=== PATIENT | female | born 1965 | race Caucasian/White ===

== ENCOUNTER 2017-08-03 00:36 | Emergency (ER) | payer OTHER ==
[2017-08-03 02:02] LABS: Absolute Lymphocytes (CBC) 3.4 K/uL (0.7-4.9); Absolute Monocytes 0.6 K/uL (0.1-1.3); Absolute Neutrophil 4.8 K/uL (1.8-8.0); Eosinophils % 3.3 % (0-4.4); Hematocrit 35.6 % (36.0-45.0); Lymphocytes % 36.8 % (15.3-44.8); MCH 29.8 pg (27.0-35.0); MCV 89.2 fL (80-100); MPV 9.6 fL (7.6-11.3); Monocytes % 6.5 % (3.3-12.3); RBC Red Blood Cell Count 3.99 M/uL (3.86-4.86)
[2017-08-03] MEDS ORDERED: NA CHLORIDE 0.9% 1,000 ML ONE (02:03)
[2017-08-03] MEDS ORDERED: FENTANYL CITR 100 MCG/2 ML ONE (02:03)
[2017-08-03] MEDS ORDERED: ONDANSETRON 4 MG/2 ML VIAL ONE (02:03)
[2017-08-03] MEDS ORDERED: FAMOTIDINE 20 MG/2 ML VIAL IV ONE (02:04)
[2017-08-03 02:24] LABS: Potassium 3.3 mEq/L (3.6-5.0)
[2017-08-03 02:30] LABS: Albumin 4.1 g/dL (3.2-5.5); Bilirubin Direct 0.1 mg/dL (0-0.2); Bilirubin Total 0.4 mg/dL (0.3-1.2); CKMB Creatine Kinase MB 0.8 ng/ml (0.3-4.0); Magnesium 1.9 mg/dL (1.8-2.5)
[2017-08-03] MEDS ORDERED: NS KCL 20MEQ 1,000 ML IV ONE (03:07)
--- NOTE | 2017-08-03 05:06 | EDPHYS ---
Physician Documentation [facility] Name: Carmina Minor Age: 51 yrs Sex: Female : 1965 Arrival Date: 08/03/2017 Time: 00:48 Bed 7 Private MD: ED Physician Juan Blas HPI: 08/03 01:21 This 51 yrs old Female presents to ER via Ambulatory with complaints of maida abdominal pain and diarrhea. 01:21 The patient presents with abdominal pain. Onset: The symptoms/episode began/occurred 4 maida day(s) ago. The patient presents to the emergency department with diarrhea, abdominal pain, of the right lower quadrant and left lower quadrant. Onset: The symptoms/episode began/occurred 4 day(s) ago. Possible causes: unknown. The symptoms are aggravated by nothing. The symptoms are alleviated by nothing. Associated signs and symptoms: Pertinent positives: abdominal pain, diarrhea. Associated signs and symptoms: Pertinent positives: diarrhea. 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:13 LMP N/A - Hysterectomy bp Historical: - Allergies: 01:13 Aspirin; bp 01:13 Cefaclor; bp 01:13 Ceftriaxone Sodium; bp 01:13 sulfamethoxazole-trimethoprim; bp 01:13 PENICILLINS; bp 01:13 METRONIDAZOLE; bp 01:13 Levofloxacin; bp 01:13 Ibuprofen; bp 01:13 Demerol; bp 01:13 Ciprofloxacin; bp - Home Meds: 01:13 Bentyl 20 mg Oral tab 1 tab every 6 hours [Active]; levothyroxine 75 mcg tab 1 tab once bp daily [Active]; omeprazole 20 mg Oral cpDR 1 cap once daily [Active]; topiramate 25 mg Oral CSpX 2 caps nightly [Active]; tramadol 50 mg Oral tab as needed [Active]; venlafaxine 75 mg Oral cp24 1 cap once daily [Active]; - PMHx: 01:13 acid reflux; Depression; Diverticulitis; Hyperlipidemia; Hypothyroidism; Migraines; bp - PSHx: 01:13 Appendectomy; Cholecystectomy; Bowel resection; bp - Immunization history:: Adult Immunizations up to date. - Social history:: Smoking status: Patient/guardian denies using tobacco. - Family history:: not pertinent. ROS: 01:21 Constitutional: Negative for fever, chills, and weight loss, Eyes: Negative for injury, maida pain, redness, and discharge, ENT: Negative for injury, pain, and discharge, Neck: Negative for injury, pain, and swelling, Cardiovascular: Negative for chest pain, palpitations, and edema, Respiratory: Negative for shortness of breath, cough, wheezing, and pleuritic chest pain, Back: Negative for injury and pain, : Negative for injury, bleeding, discharge, and swelling, MS/Extremity: Negative for injury and deformity, Skin: Negative for injury, rash, and discoloration, Neuro: Negative for headache, weakness, numbness, tingling, and seizure. 01:21 Abdomen/GI: Positive for abdominal pain, diarrhea, abdominal cramps, abdominal distension, of the suprapubic area, right lower quadrant and left lower quadrant. Exam: 01:21 Constitutional: This is a well developed, well nourished patient who is awake, alert, maida and in no acute distress. Head/Face: Normocephalic, atraumatic. Eyes: Pupils equal round and reactive to light, extra-ocular motions intact. Lids and lashes normal. Conjunctiva and sclera are non-icteric and not injected. Cornea within normal limits. Periorbital areas with no swelling, redness, or edema. ENT: Nares patent. No nasal discharge, no septal abnormalities noted. Tympanic membranes are normal and external auditory canals are clear. Oropharynx with no redness, swelling, or masses, exudates, or evidence of obstruction, uvula midline. Mucous membranes moist. Neck: Trachea midline, no thyromegaly or masses palpated, and no cervical lymphadenopathy. Supple, full range of motion without nuchal rigidity, or vertebral point tenderness. No Meningismus. Chest/axilla: Normal chest wall appearance and motion. Nontender with no deformity. No lesions are appreciated. Cardiovascular: Regular rate and rhythm with a normal S1 and S2. No gallops, murmurs, or rubs. Normal PMI, no JVD. No pulse deficits. Respiratory: Lungs have equal breath sounds bilaterally, clear to auscultation and percussion. No rales, rhonchi or wheezes noted. No increased work of breathing, no retractions or nasal flaring. Back: No spinal tenderness. No costovertebral tenderness. Full range of motion. Skin: Warm, dry with normal turgor. Normal color with no rashes, no lesions, and no evidence of cellulitis. MS/ Extremity: Pulses equal, no cyanosis. Neurovascular intact. Full, normal range of motion. Neuro: Awake and alert, GCS 15, oriented to person, place, time, and situation. Cranial nerves II-XII grossly intact. Motor strength 5/5 in all extremities. Sensory grossly intact. Cerebellar exam normal. Normal gait. Psych: Awake, alert, with orientation to person, place and time. Behavior, mood, and affect are within normal limits. 01:21 Abdomen/GI: Inspection: distension, Bowel sounds: normal, Palpation: mild abdominal tenderness, moderate abdominal tenderness, Liver: no appreciated palpable abnormalities, Hernia: not appreciated. Vital Signs: 01:13 BP 157 / 72; Pulse 76; Resp 16; Temp 97.8; Pulse Ox 98% on R/A; Weight 92.08 kg; Height bp 5 ft. 4 in. (162.56 cm); 02:00 BP 146 / 93; Pulse 64; Resp 16; Pulse Ox 94% ; bp 03:00 BP 123 / 64; Pulse 64; Resp 16; Pulse Ox 98% ; bp 04:00 BP 128 / 66; Pulse 65; Resp 14; Pulse Ox 99% ; bp 05:00 BP 123 / 84; Pulse 65; Resp 18; Pulse Ox 100% ; bp 01:13 Body Mass Index 34.84 (92.08 kg, 162.56 cm) bp MDM: 01:13 Patient medically screened. [facility] 01:26 Data reviewed: vital signs, nurses notes, lab test result(s), EKG, radiologic studies, [facility] CT scan, plain films. 08/03 01:20 Order name: Basic Metabolic Panel; Complete Time: 02:39 [facility] 08/03 01:20 Order name: BNP; Complete Time: 02:39 [facility] 08/03 01:20 Order name: CBC with Diff; Complete Time: 02:12 [facility] 08/03 01:20 Order name: Ckmb; Complete Time: 02:39 [facility] 08/03 01:20 Order name: CPK; Complete Time: 02:39 [facility] 08/03 01:20 Order name: LFT's; Complete Time: 02:39 [facility] 08/03 01:20 Order name: Magnesium; Complete Time: 02:39 [facility] 08/03 01:20 Order name: PT-INR; Complete Time: 02:39 [facility] 08/03 01:20 Order name: Ptt, Activated; Complete Time: 02:39 [facility] 08/03 01:20 Order name: Troponin (emerg Dept Use Only); Complete Time: 02:39 [facility] 08/03 01:20 Order name: Lipase; Complete Time: 02:39 [facility] 08/03 01:20 Order name: Urine Culture [facility] 08/03 01:20 Order name: CDIFF [facility] 08/03 01:20 Order name: Stool Culture [facility] 08/03 01:20 Order name: XRAY Chest (1 view) [facility] 08/03 01:20 Order name: EKG; Complete Time: 01:21 [facility] 08/03 01:20 Order name: Cardiac monitoring; Complete Time: 01:58 [facility] 08/03 01:20 Order name: EKG - Nurse/Tech; Complete Time: 01:59 [facility] 08/03 01:20 Order name: IV Saline Lock; Complete Time: 01:59 [facility] 08/03 01:20 Order name: Labs collected and sent; Complete Time: 01:59 [facility] 08/03 01:20 Order name: O2 Per Protocol; Complete Time: 01:59 [facility] 08/03 01:20 Order name: O2 Sat Monitoring; Complete Time: 01:59 [facility] 08/03 01:20 Order name: CT Abd/Pelvis - W/Contrast [facility] 08/03 01:20 Order name: Fecal Leukocyte Stain [facility] 08/03 01:56 Order name: Urine Dipstick--Ancillary (enter results) [facility] 08/03 01:20 Order name: Urine Dipstick-Ancillary (obtain specimen); Complete Time: 01:59 [facility] Administered Medications: 01:57 Drug: fentaNYL (PF) 50 mcg Route: IVP; Site: left upper arm; bp 02:33 Follow up: Response: Pain is decreased bp 01:57 Drug: Pepcid 20 mg Route: IVP; Site: left upper arm; bp 02:39 Follow up: Response: No adverse reaction bp 01:58 Drug: NS 0.9% 1000 ml Route: IV; Rate: 1 bolus; Site: left upper arm; bp 01:58 Drug: Zofran 4 mg Route: IVP; Site: left upper arm; bp 02:42 Follow up: Response: No adverse reaction bp 02:45 Drug: NS 0.9% with KCl 20 mEq/L 1000 ml Route: IV; Rate: 125 ml/hr; Site: left upper bp arm; Disposition: 03/31/18 05:06 Discharged to Home. Impression: Abdominal tenderness, Diarrhea, unspecified, Diverticular disease of intestine. - Condition is Stable. - Discharge Instructions: Abdominal Pain, Adult, Food Choices to Help Relieve Diarrhea, Adult, Diarrhea, Diverticulosis, Abdominal Pain, Adult, Xrip-cm-Mpbh, Diarrhea, Atzm-ja-Goaz. - Prescriptions for Bentyl 20 mg Oral Tablet - take 2 tablets by ORAL route every 6 hours As needed; 20 tablet. Pepcid 20 mg Oral Tablet - take 1 tablet by ORAL route every 12 hours for 10 days; 20 tablet. Zofran 4 mg Oral Tablet - take 1 tablet by ORAL route every 12 hours As needed; 20 tablet. - Medication Reconciliation Form, Thank You Letter, Antibiotic Education, Prescription Opioid Use form. - Follow up: Private Physician; When: 2 - 3 days; Reason: Recheck today's complaints, Continuance of care, Re-evaluation by your physician. - Problem is new. - Symptoms have improved. Signatures: Dispatcher [employer] Juan Garcia MD MD cha Peltier, Brian, RN RN bp
--- NOTE | 2017-08-03 05:06 | ER ---
Nurse's Notes [facility] Name: Carmina Minor Age: 51 yrs Sex: Female : 1965 Arrival Date: 08/03/2017 Time: 00:48 Bed 7 Private MD: Diagnosis: Abdominal tenderness;Diarrhea, unspecified;Diverticular disease of intestine Presentation: 08/03 01:09 Presenting complaint: Patient states: I'VE HAD THIS PAIN SINCE SATURDAY. LOWER ABD bp PAIN WITH DIARRHEA x3 DAYS. Transition of care: patient was not received from another setting of care. Onset of symptoms was July 30, 2017. Care prior to arrival: None. 01:09 Method Of Arrival: Ambulatory bp 01:09 Acuity: HOMERO 3 bp Triage Assessment: 01:13 General: Appears in no apparent distress. uncomfortable, obese, Behavior is calm, bp cooperative, appropriate for age. Pain: Complains of pain in suprapubic area, right lower quadrant and left lower quadrant. EENT: No deficits noted. Neuro: Level of Consciousness is awake, alert, obeys commands, Oriented to person, place, time, situation, Appropriate for age. Cardiovascular: No deficits noted. Respiratory: Airway is patent Respiratory effort is even, unlabored, Respiratory pattern is regular, symmetrical. GI: Abdomen is obese, Abd is soft X 4 quads Reports diarrhea. : No signs and/or symptoms were reported regarding the genitourinary system. Derm: No deficits noted. Musculoskeletal: Circulation, motion, and sensation intact. Range of motion: intact in all extremities. 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/A - Hysterectomy bp Historical: - Allergies: 01:13 Aspirin; bp 01:13 Cefaclor; bp 01:13 Ceftriaxone Sodium; bp 01:13 sulfamethoxazole-trimethoprim; bp 01:13 PENICILLINS; bp 01:13 METRONIDAZOLE; bp 01:13 Levofloxacin; bp 01:13 Ibuprofen; bp 01:13 Demerol; bp 01:13 Ciprofloxacin; bp - Home Meds: 01:13 Bentyl 20 mg Oral tab 1 tab every 6 hours [Active]; levothyroxine 75 mcg tab 1 tab once bp daily [Active]; omeprazole 20 mg Oral cpDR 1 cap once daily [Active]; topiramate 25 mg Oral CSpX 2 caps nightly [Active]; tramadol 50 mg Oral tab as needed [Active]; venlafaxine 75 mg Oral cp24 1 cap once daily [Active]; - PMHx: 01:13 acid reflux; Depression; Diverticulitis; Hyperlipidemia; Hypothyroidism; Migraines; bp - PSHx: 01:13 Appendectomy; Cholecystectomy; Bowel resection; bp - Immunization history:: Adult Immunizations up to date. - Social history:: Smoking status: Patient/guardian denies using tobacco. - Family history:: not pertinent. Screenin:19 Abuse screen: Denies threats or abuse. Denies injuries from another. Nutritional bp screening: No deficits noted. Tuberculosis screening: No symptoms or risk factors identified. Fall Risk None identified. Assessment: 01:15 General: Appears in no apparent distress. uncomfortable, obese, Behavior is calm, bp cooperative, appropriate for age. Pain: Complains of pain in suprapubic area, right lower quadrant and left lower quadrant. Neuro: Level of Consciousness is awake, alert, obeys commands, Oriented to person, place, time, situation, Appropriate for age. Cardiovascular: No deficits noted. Respiratory: Airway is patent Respiratory effort is even, unlabored, Respiratory pattern is regular, symmetrical. GI: Abdomen is obese, Abd is soft X 4 quads. : No signs and/or symptoms were reported regarding the genitourinary system. EENT: No deficits noted. Derm: No deficits noted. No signs and/or symptoms reported regarding the dermatologic system. Musculoskeletal: Circulation, motion, and sensation intact. Range of motion: intact in all extremities. 01:59 Reassessment: PO CONTRAST COMPLETED, CT NOTIFIED. bp 03:00 Reassessment: IVF INFUSING, CT PENDING. VS STABLE ON MONITOR. bp 04:00 Reassessment: ALL CURRENT ORDERS COMPLETED, RESULTS PENDING. VS STABLE ON MONITOR. bp 05:18 Reassessment: PT D/C HOME AMBULATORY, DX WITH DIVERTICULOSIS. bp Vital Signs: 01:13 BP 157 / 72; Pulse 76; Resp 16; Temp 97.8; Pulse Ox 98% on R/A; Weight 92.08 kg; Height bp 5 ft. 4 in. (162.56 cm); 02:00 BP 146 / 93; Pulse 64; Resp 16; Pulse Ox 94% ; bp 03:00 BP 123 / 64; Pulse 64; Resp 16; Pulse Ox 98% ; bp 04:00 BP 128 / 66; Pulse 65; Resp 14; Pulse Ox 99% ; bp 05:00 BP 123 / 84; Pulse 65; Resp 18; Pulse Ox 100% ; bp 01:13 Body Mass Index 34.84 (92.08 kg, 162.56 cm) bp ED Course: 00:48 Patient arrived in ED. rg2 01:09 Ruslan Bonilla, RN is Primary Nurse. bp 01:10 Triage completed. bp 01:13 Juan Blas MD is Attending Physician. maida 01:13 Arm band placed on. bp 01:19 Patient has correct armband on for positive identification. Bed in low position. Call bp light in reach. Side rails up X2. 01:19 Inserted saline lock: 20 gauge in left upper arm, using aseptic technique. Blood bp collected. 01:34 X-ray completed. Portable x-ray completed in exam room. Patient tolerated procedure kc2 well. 01:44 XRAY Chest (1 view) In Process Unspecified. EDMS 04:09 CT Abd/Pelvis - W/Contrast In Process Unspecified. EDMS 04:31 CT completed. Patient tolerated procedure well. Patient moved to CT via wheelchair. vr Patient moved back from CT. 05:16 No provider procedures requiring assistance completed. IV discontinued, intact, bp bleeding controlled, No redness/swelling at site. Pressure dressing applied. Administered Medications: 01:57 Drug: fentaNYL (PF) 50 mcg Route: IVP; Site: left upper arm; bp 02:33 Follow up: Response: Pain is decreased bp 01:57 Drug: Pepcid 20 mg Route: IVP; Site: left upper arm; bp 02:39 Follow up: Response: No adverse reaction bp 01:58 Drug: NS 0.9% 1000 ml Route: IV; Rate: 1 bolus; Site: left upper arm; bp 01:58 Drug: Zofran 4 mg Route: IVP; Site: left upper arm; bp 02:42 Follow up: Response: No adverse reaction bp 02:45 Drug: NS 0.9% with KCl 20 mEq/L 1000 ml Route: IV; Rate: 125 ml/hr; Site: left upper bp arm; Outcome: 05:06 Discharge ordered by . maida 05:19 Discharged to home ambulatory. bp 05:19 Condition: stable 05:19 Discharge instructions given to patient, Instructed on discharge instructions, follow up and referral plans. medication usage, Demonstrated understanding of instructions, follow-up care, medications, Prescriptions given X 3. 05:19 Patient left the ED. bp Signatures: Dispatcher [employer] EDNegra Hercules rg2 Juan Blas MD MD cha Davis, Victoria vr Carr, Kelsie kc2 Ruslan Bonilla, PAOLA RN bp Corrections: (The following items were deleted from the chart) 01:17 01:13 BP 157 / 72; Pulse 76bpm; Resp 16bpm; Pulse Ox 98% RA; Temp 97.8F; bp bp
[2017-08-03 05:30] VITALS: TEMP 97.8
[2017-08-03 05:35] VITALS: BP 123/84; O2SAT 100
[2017-08-03 05:55] LABS: Urine Blood NEGATIVE (NEG); Urine Glucose NEGATIVE (NEG); Urine Protein NEGATIVE (NEG); Urine Specific Gravity 1.015 (1.005-1.030)
--- NOTE | 2017-08-03 11:56 | RAD REPORT ---
EXAM DESCRIPTION: CTAbdomen Pelvis W Contrast - 08/03/2017 4:09 am CLINICAL HISTORY: Abdominal pain. Diarrhea. COMPARISON: 04/05/2017, 04/24/2016, 09/26/2015 TECHNIQUE: Biphasic CT imaging of the abdomen and pelvis was performed with 100 ml non-ionic IV cont rast. All CT scans are performed using dose optimization technique as appropriate and may include automated exposure control or mA/KV adjustment according to patient size. FINDINGS: The lung bases are clear. Diffuse fatty liver noted. An area of fatty sparing is suspect in the right lobe. Cholecystectomy cli ps are seen. The spleen, pancreas, adrenal glands and kidneys are within normal limits. No bowel obstruction, free air, free fluid or abscess. The appendix appears absent. Prominent coloni c diverticulosis without diverticulitis. Postsurgical changes are present the region of the sigmoid c olon. No evidence of significant lymphadenopathy. No suspicious bony findings. IMPRESSION: No acute intra-abdominal or pelvic finding. Prominent fatty liver. Colonic diverticulosis without diverticulitis.
--- NOTE | 2017-08-03 12:08 | RAD REPORT ---
EXAM DESCRIPTION: RAD - Chest Single View - 08/03/2017 1:44 am CLINICAL HISTORY: Chest pain. COMPARISON: 06/21/2017, 09/26/2016 FINDINGS: Portable technique limits examination quality. The lungs are grossly clear. The heart is normal in size. No displaced fractures. IMPRESSION: No acute intrathoracic process suspected.
--- NOTE | 2017-08-04 12:51 | EKG ---
Test Date: 2017-08-03 Test Time: 01:53:04 Exhibits Curator: BP MEASUREMENT RESULTS: Intervals: Rate: 62 HI: 168 QRSD: 80 QT: 390 QTc: 395 [place]: P: 10 HI: 168 QRS: 24 T: 31 INTERPRETIVE STATEMENTS: Normal sinus rhythm Normal ECG Compared to ECG 09/25/2016 23:03:05 No significant changes Electronically Signed On 08-04-17 12:51:14 CDT by Pascual Zavaleta
== END 2017-08-03 05:19 | disposition home or self-care (01) ==
LOC: ER 00:36
DX: K57.90 Diverticulosis of intestine, part unspecified, without perforation or abscess without bleeding (principal); R19.7 Diarrhea, unspecified; E78.5 Hyperlipidemia, unspecified; E03.9 Hypothyroidism, unspecified; F32.9 Major depressive disorder, single episode, unspecified; Z88.0 Allergy status to penicillin; Z88.1 Allergy status to other antibiotic agents; Z88.2 Allergy status to sulfonamides; Z88.3 Allergy status to other anti-infective agents; Z88.5 Allergy status to narcotic agent; Z88.6 Allergy status to analgesic agent
CPT/HCPCS: 36415; 71045; 74177; 80048; 80076; 81003; 82550; 82553; 83690; 83735; 83880; 84484; 85025; 85610; 85730; 87045; 87046; 87086; 87088; 87493; 89055; 93005; 96374; 96375; 99284; J2405; J3010; J7030; Q9967

== ENCOUNTER 2018-04-28 00:27 | Emergency (ER) | payer OTHER ==
[2018-04-28 01:37] LABS: Absolute Lymphocytes (CBC) 2.8 K/uL (0.7-4.9); Absolute Monocytes 0.8 K/uL (0.1-1.3); Absolute Neutrophil 4.7 K/uL (1.8-8.0); Basophils % 1.1 % (0-1.3); Eosinophils % 3.4 % (0-4.4); Hematocrit 36.5 % (36.0-45.0); Lymphocytes % 32.7 % (15.3-44.8); MPV 8.8 fL (7.6-11.3); Monocytes % 8.8 % (3.3-12.3); RBC Red Blood Cell Count 4.15 M/uL (3.86-4.86)
[2018-04-28 01:58] LABS: ALT/SGPT 37 U/L (12-78); AST/SGOT 16 U/L (15-37); Albumin 3.9 g/dL (3.4-5.0); Alkaline Phosphatase 84 U/L (45-117); BUN Blood Urea Nitrogen 23 mg/dL (7-18); Bicarbonate 27 mmol/L (21-32); Bilirubin Direct < 0.1 mg/dL (0-0.2); Bilirubin Total 0.2 mg/dL (0.2-1.0); Glucose Level 97 mg/dL (74-106); Magnesium 2.1 mg/dL (1.8-2.4); NT PRO-BNP 25 pg/mL (<125); Potassium 3.7 mmol/L (3.5-5.1); Protein, Total 7.5 g/dL (6.4-8.2); Sodium Level 140 mmol/L (136-145); Troponin (Emerg Dept Use Only) < 0.02 ng/mL (0.0-0.045)
[2018-04-28 02:02] LABS: Protime INR 1.03
[2018-04-28] MEDS ORDERED: ACETAMINOPHEN 325 MG TABLET ONE (03:11)
--- NOTE | 2018-04-28 03:30 | ER ---
Nurse's Notes [facility] Name: Carmina Minor Age: 52 yrs Sex: Female : 1965 Arrival Date: 04/28/2018 Time: 00:30 Bed 7 Private MD: Kori Loza C Diagnosis: Chest pain. Migraine Presentation: 04/28 00:35 Presenting complaint: Patient states: that she has been having chest pain constantly fc for 3 days along with shortness of breath but denies any nausea or vomiting. Also having migraine. Transition of care: patient was not received from another setting of care. Onset of symptoms was April 25, 2018. Risk Assessment: Do you want to hurt yourself or someone else? Patient reports no desire to harm self or others. Initial Sepsis Screen: Does the patient meet any 2 criteria? No. Patient's initial sepsis screen is negative. Does the patient have a suspected source of infection? No. Patient's initial sepsis screen is negative. Care prior to arrival: None. 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 N/A - Hysterectomy fc Historical: - Allergies: 00:57 Aspirin; fc 00:57 Cefaclor; fc 00:57 Ciprofloxacin; fc 00:57 Ceftriaxone Sodium; fc 00:57 Demerol; fc 00:57 Ibuprofen; fc 00:57 Levofloxacin; fc 00:57 METRONIDAZOLE; 00:57 PENICILLINS; 00:57 sulfamethoxazole-trimethoprim; fc - Home Meds: 00:57 Symbicort inhalation inhalation 2 times per day [Active]; ProAir HFA 90 mcg/actuation fc inhalation HFAA 1 puff every 4-6 hours [Active]; topiramate 25 mg Oral CSpX 2 caps nightly [Active]; venlafaxine 150 mg oral cp24 1 cap nightly [Active]; levothyroxine 75 mcg tab 1 tab once daily [Active]; loratadine 10 mg oral tab 1 tab once daily [Active]; pantoprazole 20 mg oral TbEC 1 tab once daily [Active]; - PMHx: 00:57 acid reflux; Depression; Diverticulitis; Hyperlipidemia; Hypothyroidism; Migraines; fc - PSHx: 00:57 Appendectomy; Cholecystectomy; Bowel resection; Hysterectomy; Tonsillectomy; Ear Tubes; fc Adenoids; - Immunization history:: Last tetanus immunization: unknown, Flu vaccine is not up to date. - Social history:: Smoking status: Patient/guardian denies using tobacco, Patient uses alcohol, occasionally. Patient/guardian denies using street drugs. - Ebola Screening: : Patient negative for fever greater than or equal to 101.5 degrees Fahrenheit, and additional compatible Ebola Virus Disease symptoms Patient denies exposure to infectious person Patient denies travel to an Ebola-affected area in the 21 days before illness onset. Screenin:53 Abuse screen: Denies threats or abuse. Nutritional screening: No deficits noted. fc Tuberculosis screening: No symptoms or risk factors identified. Fall Risk None identified. Assessment: 01:30 General: Appears in no apparent distress. Behavior is calm, cooperative, appropriate ea for age. Pain: Complains of pain in chest Pain does not radiate. Pain began 1 hour ago. 01:30 Neuro: Level of Consciousness is awake, alert, obeys commands, Oriented to person, ea place, time, situation. Cardiovascular: Heart tones S1 S2 present Patient's skin is warm and dry. Respiratory: Airway is patent Respiratory effort is even, unlabored, Respiratory pattern is regular, symmetrical, Breath sounds are clear bilaterally. GI: Abdomen is non-distended. Derm: Skin is pink, warm \T\ dry. 02:16 Reassessment: Patient and/or family updated on plan of care and expected duration. Pain ea level reassessed. Patient is alert, oriented x 3, equal unlabored respirations, skin warm/dry/pink. 03:45 Reassessment: Patient and/or family updated on plan of care and expected duration. Pain ea level reassessed. Patient is alert, oriented x 3, equal unlabored respirations, skin warm/dry/pink. Discharge instructions given to patient, verbalized the understanding of instruction. Vital Signs: 00:35 BP 145 / 83; Pulse 76; Resp 18; Temp 97.7(O); Pulse Ox 99% on R/A; Weight 94.35 kg (R); fc Height 5 ft. 4 in. (162.56 cm) (R); Pain 5/10; 01:01 BP 121 / 85; Pulse 81; Resp 18; Pulse Ox 97% on R/A; ea 02:00 BP 125 / 73; Pulse 77; Resp 18; Pulse Ox 99% ; ea 03:46 BP 122 / 68; Pulse 72; Resp 18; Pulse Ox 98% on R/A; ea 00:35 Body Mass Index 35.70 (94.35 kg, 162.56 cm) ED Course: 00:30 Patient arrived in ED. am2 00:31 Kori Loza FNP is Private Physician. am2 00:35 Arm band placed on Patient placed in an exam room, on a stretcher. fc 00:38 Bay Turner MD is Attending Physician. pkl 00:52 Triage completed. fc 00:53 Patient has correct armband on for positive identification. Placed in gown. Bed in low fc position. Call light in reach. phototypesetting equipment monitor on. Pulse ox on. NIBP on. 00:53 No provider procedures requiring assistance completed. Patient maintains SpO2 fc saturation greater than 95% on room air. 01:15 Inserted saline lock: 22 gauge in left antecubital area, using aseptic technique. Blood ds4 collected. 01:30 Esmer Zavala RN is Primary Nurse. ea 01:52 X-ray completed. Portable x-ray completed in exam room. Patient tolerated procedure kw well. 01:56 XRAY Chest (1 view) In Process Unspecified. EDMS 03:46 IV discontinued, intact, bleeding controlled, No redness/swelling at site. Pressure ea dressing applied. Administered Medications: 03:05 Drug: Tylenol 650 mg Route: PO; ea 03:30 Follow up: Response: No adverse reaction; Pain is decreased ea Outcome: 03:29 Discharge ordered by . pknayely 03:45 Condition: improved ea 03:45 Discharge instructions given to patient, Instructed on discharge instructions, follow up and referral plans. medication usage, Demonstrated understanding of instructions, follow-up care, medications, Prescriptions given X 1. 03:46 Discharged to home ambulatory. ea 03:47 Patient left the ED. ea Signatures: Dispatcher [employer] EDMS Bay Turner MD MD pkl Chretien, Felicia, RN RN Christine Cowart Donovan ds4 Tanya Ray am2 Esmer Zavala RN RN ea
--- NOTE | 2018-04-28 03:30 | EDPHYS ---
Physician Documentation [facility] Name: Carmina Minor Age: 52 yrs Sex: Female : 1965 Arrival Date: 04/28/2018 Time: 00:30 Bed 7 Private MD: Kori Loza C ED Physician Bay Turner HPI: 04/28 01:34 This 52 yrs old Female presents to ER via Ambulatory with complaints of Chest pkl Pain, Headache. 01:34 The patient or guardian reports chest pain that is located primarily in the substernal pkl area. Onset: 3 day(s) ago. The pain does not radiate. Associated signs and symptoms: Pertinent positives: headache. The chest pain is described as tightness. The patient has not experienced similar symptoms in the past. 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 N/A - Hysterectomy fc Historical: - Allergies: 00:57 Aspirin; fc 00:57 Cefaclor; fc 00:57 Ciprofloxacin; fc 00:57 Ceftriaxone Sodium; fc 00:57 Demerol; fc 00:57 Ibuprofen; fc 00:57 Levofloxacin; fc 00:57 METRONIDAZOLE; fc 00:57 PENICILLINS; fc 00:57 sulfamethoxazole-trimethoprim; fc - Home Meds: 00:57 Symbicort inhalation inhalation 2 times per day [Active]; ProAir HFA 90 mcg/actuation fc inhalation HFAA 1 puff every 4-6 hours [Active]; topiramate 25 mg Oral CSpX 2 caps nightly [Active]; venlafaxine 150 mg oral cp24 1 cap nightly [Active]; levothyroxine 75 mcg tab 1 tab once daily [Active]; loratadine 10 mg oral tab 1 tab once daily [Active]; pantoprazole 20 mg oral TbEC 1 tab once daily [Active]; - PMHx: 00:57 acid reflux; Depression; Diverticulitis; Hyperlipidemia; Hypothyroidism; Migraines; fc - PSHx: 00:57 Appendectomy; Cholecystectomy; Bowel resection; Hysterectomy; Tonsillectomy; Ear Tubes; fc Adenoids; - Immunization history:: Last tetanus immunization: unknown, Flu vaccine is not up to date. - Social history:: Smoking status: Patient/guardian denies using tobacco, Patient uses alcohol, occasionally. Patient/guardian denies using street drugs. - Ebola Screening: : Patient negative for fever greater than or equal to 101.5 degrees Fahrenheit, and additional compatible Ebola Virus Disease symptoms Patient denies exposure to infectious person Patient denies travel to an Ebola-affected area in the 21 days before illness onset. ROS: 01:34 Eyes: Negative for injury, pain, redness, and discharge, ENT: Negative for injury, pkl pain, and discharge, Neck: Negative for injury, pain, and swelling. 01:34 Cardiovascular: Positive for chest pain. :34 Respiratory: Negative for cough, shortness of breath. 01:34 Abdomen/GI: Negative for abdominal pain, nausea, vomiting, and diarrhea. 01:34 Back: Negative for acute changes. :34 : Negative for urinary symptoms. :34 MS/extremity: Negative for acute changes. :34 Skin: Negative for rash. :34 Neuro: Negative for altered mental status. Exam: :34 Head/Face: Normocephalic, atraumatic. Eyes: Pupils equal round and reactive to light, pkl extra-ocular motions intact. Lids and lashes normal. Conjunctiva and sclera are non-icteric and not injected. Cornea within normal limits. Periorbital areas with no swelling, redness, or edema. ENT: Nares patent. No nasal discharge, no septal abnormalities noted. Tympanic membranes are normal and external auditory canals are clear. Oropharynx with no redness, swelling, or masses, exudates, or evidence of obstruction, uvula midline. Mucous membranes moist. Neck: Trachea midline, no thyromegaly or masses palpated, and no cervical lymphadenopathy. Supple, full range of motion without nuchal rigidity, or vertebral point tenderness. No Meningismus. Chest/axilla: Normal chest wall appearance and motion. Nontender with no deformity. No lesions are appreciated. Cardiovascular: Regular rate and rhythm with a normal S1 and S2. No gallops, murmurs, or rubs. Normal PMI, no JVD. No pulse deficits. Respiratory: Lungs have equal breath sounds bilaterally, clear to auscultation and percussion. No rales, rhonchi or wheezes noted. No increased work of breathing, no retractions or nasal flaring. Abdomen/GI: Soft, non-tender, with normal bowel sounds. No distension or tympany. No guarding or rebound. No evidence of tenderness throughout. Back: No spinal tenderness. No costovertebral tenderness. Full range of motion. Skin: Warm, dry with normal turgor. Normal color with no rashes, no lesions, and no evidence of cellulitis. MS/ Extremity: Pulses equal, no cyanosis. Neurovascular intact. Full, normal range of motion. Neuro: Awake and alert, GCS 15, oriented to person, place, time, and situation. Cranial nerves II-XII grossly intact. Motor strength 5/5 in all extremities. Sensory grossly intact. Cerebellar exam normal. Normal gait. Vital Signs: 00:35 BP 145 / 83; Pulse 76; Resp 18; Temp 97.7(O); Pulse Ox 99% on R/A; Weight 94.35 kg (R); fc Height 5 ft. 4 in. (162.56 cm) (R); Pain 5/10; 01:01 BP 121 / 85; Pulse 81; Resp 18; Pulse Ox 97% on R/A; ea 02:00 BP 125 / 73; Pulse 77; Resp 18; Pulse Ox 99% ; ea 03:46 BP 122 / 68; Pulse 72; Resp 18; Pulse Ox 98% on R/A; ea 00:35 Body Mass Index 35.70 (94.35 kg, 162.56 cm) fc MDM: 00:38 Patient medically screened. pkl 03:27 Data reviewed: vital signs, nurses notes, lab test result(s), EKG, radiologic studies, pkl plain films. 04/28 01:10 Order name: Basic Metabolic Panel; Complete Time: 02: pk 04/28 01:10 Order name: CBC with Diff; Complete Time: : pkl 04/28 01:10 Order name: LFT's; Complete Time: : pkl 04/28 01:10 Order name: Magnesium; Complete Time: 02: pkl 04/28 01:10 Order name: NT PRO-BNP; Complete Time: : pk 04/28 01:10 Order name: PT-INR; Complete Time: : pkl 04/28 01:10 Order name: Troponin (emerg Dept Use Only); Complete Time: 02: pkl 04/28 01:10 Order name: XRAY Chest (1 view) pk 04/28 01:10 Order name: EKG; Complete Time: 01:11 pkl 04/28 01:10 Order name: Cardiac monitoring; Complete Time: :39 pkl 04/28 01:10 Order name: EKG - Nurse/Tech; Complete Time: :39 pkl 04/28 01:10 Order name: D-Dimer; Complete Time: 02:31 pkl 04/28 02:53 Order name: Troponin (emerg Dept Use Only); Complete Time: 03:26 ea 04/28 01:10 Order name: IV Saline Lock; Complete Time: : pkl 04/28 01:10 Order name: Labs collected and sent; Complete Time: : pkl 04/28 01:10 Order name: O2 Per Protocol; Complete Time: : pkl 04/28 01:10 Order name: O2 Sat Monitoring; Complete Time: pkl 04/28 02:53 Order name: EKG - Nurse/Tech; Complete Time: 03:06 ea Administered Medications: 03:05 Drug: Tylenol 650 mg Route: PO; ea 03:30 Follow up: Response: No adverse reaction; Pain is decreased ea Disposition: 04/28/18 03:29 Discharged to Home. Impression: Chest pain. Migraine. - Condition is Stable. - Prescriptions for Ultram 50 mg Oral Tablet - take 1 tablet by ORAL route every 8 hours As needed; 20 tablet. - Medication Reconciliation Form, Thank You Letter, Antibiotic Education, Prescription Opioid Use form. - Follow up: Private Physician; When: 2 - 3 days; Reason: Re-evaluation by your physician. - Problem is new. - Symptoms have improved. Signatures: Dispatcher [employer] EDMS Bay Turner MD MD pkSarah Byrnes RN RN fc Antunez, Elena, RN RN ea Corrections: (The following items were deleted from the chart) 03:47 03:29 04/28/2018 03:29 Discharged to Home. Impression: Chest pain. Migraine. Condition ea is Stable. Forms are Medication Reconciliation Form, Thank You Letter, Antibiotic Education, Prescription Opioid Use. Follow up: Private Physician; When: 2 - 3 days; Reason: Re-evaluation by your physician. Problem is new. Symptoms have improved. pkl
[2018-04-28 04:02] VITALS: TEMP 97.7
[2018-04-28 04:06] VITALS: BP 122/68; O2SAT 98
--- NOTE | 2018-04-28 07:54 | EKG ---
Test Date: 2018-04-28 Test Time: 00:45:21 Movie Operator: JUDY MEASUREMENT RESULTS: Intervals: Rate: 78 KS: 166 QRSD: 80 QT: 360 QTc: 410 [place]: P: 38 [place]: 166 QRS: 29 T: 47 INTERPRETIVE STATEMENTS: Normal sinus rhythm Cannot rule out Anterior infarct, age undetermined Abnormal ECG Compared to ECG 08/03/2017 01:53:04 Myocardial infarct finding now present Electronically Signed On 04-28-18 07:53:48 BARIATRIC SURGEON by Donato Andres
--- NOTE | 2018-04-28 07:54 | EKG ---
Test Date: 2018-04-28 Test Time: 02:55:55 Maintenance Mechanic Supervisor: JUDY MEASUREMENT RESULTS: Intervals: Rate: 73 DE: 168 QRSD: 86 QT: 386 QTc: 425 [place]: P: 53 DE: 168 QRS: 51 T: 64 INTERPRETIVE STATEMENTS: Normal sinus rhythm Normal ECG Compared to ECG 04/28/2018 00:45:21 Myocardial infarct finding no longer present Electronically Signed On 04-28-18 07:53:47 MATE CHIEF by Donato Andres
--- NOTE | 2018-04-28 08:20 | RAD REPORT ---
EXAM DESCRIPTION: RAD - Chest Single View - 04/28/2018 1:56 am CLINICAL HISTORY: Chest pain COMPARISON: August 03, June 21 TECHNIQUE: AP portable chest image was obtained 0143 hours . FINDINGS: No acute lung parenchymal process seen. No failure or volume overload. Retrocardiac left b ase is limited but not clearly different from the 2 prior studies. Heart and vasculature are normal. No measurable pleural effusion and no pneumothorax. No acute bony abnormality seen. No acute aortic f indings suspected. IMPRESSION: No acute cardiopulmonary process.
== END 2018-04-28 03:47 | disposition home or self-care (01) ==
LOC: ER 00:27
DX: G43.909 Migraine, unspecified, not intractable, without status migrainosus (principal); R07.9 Chest pain, unspecified; K21.9 Gastro-esophageal reflux disease without esophagitis; F32.9 Major depressive disorder, single episode, unspecified; E78.5 Hyperlipidemia, unspecified; E03.9 Hypothyroidism, unspecified; Z79.899 Other long term (current) drug therapy
CPT/HCPCS: 36415; 71045; 80048; 80076; 83735; 83880; 84484; 85025; 85379; 85610; 93005; 99285